=== PATIENT | female | born 1980 | race Caucasian/White ===

== ENCOUNTER 2017-09-05 22:22 | Emergency (ER) | payer OTHER ==
[2017-09-05] MEDS ORDERED: NORMAL SALINE 1000 ML 1,000 ML IV ONE (23:51)
[2017-09-05] MEDS ORDERED: PROCHLORPERAZINE EDISYLATE INJ 10 MG/2 ML VIAL IV ONE (23:52)
[2017-09-05] MEDS ORDERED: DIPHENHYDRAMINE HCL 50 MG/ML VIAL IV ONE (23:52)
[2017-09-05] MEDS ORDERED: KETOROLAC TROMETHAMINE INJ/PF 30 MG/1 ML SDV IV ONE (23:53)
[2017-09-05] MEDS ORDERED: ONDANSETRON HCL INJ/PF 4 MG/2 ML SDV IV ONE (23:53)
[2017-09-06] MEDS ORDERED: ONDANSETRON ODT 4 MG TAB (6 TAB/ER DISP) PO PRN (01:07)
--- NOTE | 2017-09-06 01:16 | ER Document Report ---
ED Headache - General Chief Complaint: Headache Stated Complaint: HEADACHE/VOMITING Time Seen by Provider: 09/05/17 23:38 Mode of Arrival: Ambulatory Information source: Patient Notes: Patient is a 37-year-old female who presents with complaints of headache. Patient reports that her headache started Ricardo and has gradually gotten worse. Patient reports that she does have some neck pain but no fever. Patient reports a history of migraines however she states that this is different from her typical migraines because her typical migraines on the left side and this headache is on the right side. Patient reports past medical history of hyperlipidemia hypertension, hypothyroidism and states that she takes levothyroxine. TRAVEL OUTSIDE OF THE [place] IN LAST 30 DAYS: No - Related Data Allergies/Adverse Reactions: No Known Allergies Allergy (Unverified 09/05/17 22:50) Past Medical History - General Information source: Patient - Social History Smoking Status: Never Smoker Chew tobacco use (# tins/day): No Frequency of alcohol use: None Drug Abuse: None Family History: Arthritis, CAD, CVA, Hyperlipidemia, Hypertension, Malignancy Patient has suicidal ideation: No Patient has homicidal ideation: No Renal/ Medical History: Denies: Hx Peritoneal Dialysis Musculoskeltal Medical History: Reports Hx Musculoskeletal Trauma Psychiatric Medical History: Reports: Hx Depression Past Surgical History: Reports: Hx Orthopedic Surgery - Labrum tear repair 2 Review of Systems - Review of Systems Constitutional: No symptoms reported EENT: See HPI Cardiovascular: No symptoms reported Respiratory: No symptoms reported Gastrointestinal: No symptoms reported Genitourinary: No symptoms reported Female Genitourinary: No symptoms reported Musculoskeletal: No symptoms reported Skin: No symptoms reported Hematologic/Lymphatic: No symptoms reported Neurological/Psychological: No symptoms reported Physical Exam - Vital signs Vitals: Temp Pulse Resp BP Pulse Ox 97.5 F 116 H 22 H 150/107 H 100 09/05/17 22:46 09/05/17 22:46 09/05/17 22:46 09/05/17 22:46 09/05/17 22:46 - Notes Notes: Patient presents with what appears to be a migraine headache. 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 Patient states that this was a very gradual onset which has gotten worse over the last 2 days. Patient reports that she has had nausea and vomiting with this headache as well as photophobia. Patient denies any fever. Patient reports that she does have some neck pain however there is no nuchal rigidity and patient has full range of motion. Patient reports that she tried taking Tylenol which is what usually helps with her headaches patient states that she has had minimal relief. Patient is dry heaving during my exam. Will treat patient with migraine medications as well as antiemetics and reevaluate. Low likelihood of any acute abnormalities such as a subarachnoid hemorrhage or intracranial bleed as the onset of the headache was gradual and is unilateral. No suspicion of infectious process such as meningitis as patient does not have any fever and does not have any nuchal rigidity. Patient reports complete resolution of symptoms after treatment with IV fluids, pain medications and nausea medications. Patient will be discharged and given a prescription for nausea medications and Fioricet. Patient states that she will follow-up with her primary care doctor for further management of her migraines. Patient is stable on discharge. Course - Vital Signs Vital signs: Temp Pulse Resp BP Pulse Ox 97.5 F 116 H 11 L 150/108 H 98 09/05/17 22:46 09/05/17 22:46 09/06/17 01:22 09/06/17 01:22 09/06/17 01:22 Discharge - Discharge Clinical Impression: Headache Qualifiers: Headache type: unspecified Headache chronicity pattern: episodic headache Intractability: not intractable Qualified Code(s): R51 - Headache Vomiting Qualifiers: Vomiting type: unspecified Vomiting Intractability: non-intractable Nausea presence: with nausea Qualified Code(s): R11.2 - Nausea with vomiting, unspecified Disposition: HOME, SELF-CARE Additional Instructions: Headache The physician does not feel that the headache you are experiencing has a serious underlying cause. Most headaches are due to emotional stress, with resultant muscle tension (tension headache). Occasionally, headaches are secondary to changes in the blood vessels of the scalp (vascular headache and migraine headache). Sometimes, a headache is the first symptom of another developing illness, such as a viral infection. You have no evidence of stroke, bleeding, meningitis, or other serious cause of your headache. The treatment of headaches varies with the severity and cause of the pain. Not all headaches need pain shots. In fact, there is evidence that using narcotics for headaches may make them worse in the long run. The physician will determine the therapy that's in your best interest. If you develop a fever, if the headache is different from any you've previously experienced, or if the headache progressively worsens, then call your physician at once or go to the emergency room. Intravenous (IV) Fluids As part of your care today, you received intravenous (IV) fluids. IV fluids are administered to patients who are dehydrated or to those who have certain chemical (electrolyte) abnormalities that need correcting. Intravenous Compazine for Headaches You have received therapy for headaches, using intravenous Compazine. This treatment is dramatically successful in relieving the headache in about 50 percent of cases. When it works, it provides a rapid method of eliminating the headache without resorting to narcotics (and the problems associated with them). Most patients still feel fully alert after the Compazine, but others may be slightly drowsy. It's best not to drive or work with machinery for six to eight hours. Do not take alcohol or other medication unless you discuss it with the doctor. If you develop tightness and spasms in your muscles, especially the neck and tongue, you should return. This is a side effect which can be treated. Prescriptions: Butalb/Acetaminophen/Caffeine [Fioricet (50-325-40 mg) Tablet] 1 - 2 tab PO Q4H #30 tab Ondansetron [Zofran Odt 4 mg Tablet] 1 - 2 tab PO Q4H PRN #15 tab.rapdis PRN Reason: For Nausea/Vomiting
[2017-09-06 01:26] VITALS: BP 150/108
== END 2017-09-06 01:28 | disposition home or self-care (01) ==
LOC: ER 22:22
DX: R51 Headache (principal); R11.10 Vomiting, unspecified; M54.2 Cervicalgia
CPT/HCPCS: 99284; 96361; 96374; 96375; J1200; J1885; J0780; J2405; J7030